=== PATIENT | male | born 1955 | race African-American/Black ===

== ENCOUNTER → 2024-07-05 | Outpatient (CLI) | payer OTHER, MEDICARE, SELFPAY ==
[2024-07-05 11:57] LABS: Prostate Specific Antigen < 0.10 ng/mL (0-4.00)
== END | disposition home or self-care (01) ==
LOC: COPL 10:55
PROVIDERS: PCP Family Medicine; Referring Provider Urology; Visit Provider Urology
DX: C61 Malignant neoplasm of prostate (principal)
CPT/HCPCS: 36415; 84153

== ENCOUNTER → 2024-07-05 | Outpatient (BNVA) | payer OTHER, MEDICARE, SELFPAY | END | disposition home or self-care (01) | PROVIDERS: PCP Family Medicine; Referring Provider Family Medicine; Visit Provider Urology | DX: C61 Malignant neoplasm of prostate (principal); N52.9 Male erectile dysfunction, unspecified; I10 Essential (primary) hypertension; E11.9 Type 2 diabetes mellitus without complications; M19.90 Unspecified osteoarthritis, unspecified site; Z80.42 Family history of malignant neoplasm of prostate; Z96.649 Presence of unspecified artificial hip joint | CPT/HCPCS: 99212; G0463 ==